=== PATIENT | female | born 1945 | race Asian ===

== ENCOUNTER 2017-03-20 07:05 | Day surgery (SDC) | payer OTHER, BC ==
[2017-03-15 11:00] VITALS: BMI 26.2
[2017-03-20] MEDS ORDERED: PROPOFOL 20 ML ONE ×2 (07:16)
[2017-03-20] MEDS ORDERED: LIDOCAINE HCL/PF 2% SDV 5ML VIAL ONE (07:16)
[2017-03-20 08:54] VITALS: TEMP 97.4
[2017-03-20 09:28] VITALS: BP 129/70; PULSE 87
== END 2017-03-20 09:35 | disposition home or self-care (01) ==
LOC: FASU-ENDO 07:05
PROVIDERS: ATTEND Internal Medicine Gastroenterology
PROC: 0DJD8ZZ Inspection of Lower Intestinal Tract, Via Natural or Artificial Opening Endoscopic (ICD-10-PCS; principal; 2017-03-20 08:21)
DX: Z86.010 Personal history of colon polyps (principal); K57.30 Diverticulosis of large intestine without perforation or abscess without bleeding

== ENCOUNTER 2022-08-20 07:17 | Day surgery (SDC) | payer OTHER, BC ==
[2022-08-15 10:29] VITALS: BMI 25.9
[2022-08-20] MEDS ORDERED: LIDOCAINE HCL/PF 2% SDV 5ML VIAL ONE (07:32)
[2022-08-20] MEDS ORDERED: PROPOFOL 120 ML ONE (07:33)
[2022-08-20 09:18] VITALS: PULSE 92; RESP 18; TEMP 97.8
[2022-08-20 09:37] VITALS: BP 119/70
== END 2022-08-20 09:51 | disposition home or self-care (01) ==
LOC: FASU-ENDO 07:17
PROVIDERS: ATTEND Internal Medicine Gastroenterology
PROC: 0DBC8ZX Excision of Ileocecal Valve, Via Natural or Artificial Opening Endoscopic, Diagnostic (ICD-10-PCS; principal; 2022-08-20 08:23)
DX: Z12.11 Encounter for screening for malignant neoplasm of colon (principal); D12.0 Benign neoplasm of cecum; K57.30 Diverticulosis of large intestine without perforation or abscess without bleeding; Z86.010 Personal history of colon polyps
CPT/HCPCS: 88305-TC